=== PATIENT | female | born 1945 | race Caucasian/White ===

== ENCOUNTER 2016-11-24 12:25 | Emergency (ER) | payer BC, OTHER ==
[2016-11-24 13:00] VITALS: BP 170/89; PULSE 86; TEMP 98; BMI 38.9
--- NOTE | 2016-11-24 13:50 | PDOC ---
History of Present Illness - General Stated Complaint: TICK DEV ON NECK Time Seen by Provider: 11/24/16 13:34 History Source: Patient Exam Limitations: No Limitations - History of Present Illness Initial Comments: 11/24/16 13:42 71 yr female pulled a tick off her neck last night. The tick was alive, pt had just been out in the garden. Pt statea ll pieces were removed and she then placed rubbing alcohol on the wound. Pt here for evaluation. Timing/Duration: reports: yesterday Severity: Yes: mild Location: reports: face Respiratory Risk Factors: reports: insect bite Past History - Past Medical History Allergies/Adverse Reactions: Allergies Allergy/AdvReac Type Severity Reaction Status Date / Time No Known Allergies Allergy Verified 11/24/16 13:00 Home Medications: Ambulatory Orders Atenolol [Tenormin -] 50 mg PO DAILY 11/24/16 Lisinopril/Hydrochlorothiazide [Lisinopril-Hctz 20-12.5 mg Tab] 1 each PO DAILY 11/24/16 Metformin HCl 500 mg PO BID 11/24/16 Diabetes: Yes HTN: Yes Other medical history: SALIVARY GLAND, CATARACT - Surgical History Appendectomy: Yes Cholecystectomy: Yes - Psycho/Social/Smoking Cessation Hx Suicidal Ideation: No Smoking History: Never smoked Information on smoking cessation initiated: No Review of Systems - Review of Systems Able to Perform ROS?: Yes Is the patient limited Bulgarian proficient: No Constitutional: No: Symptoms Reported HEENTM: No: Symptoms Reported Respiratory: No: Symptoms reported Cardiac (ROS): No: Symptoms Reported ABD/GI: No: Symptoms Reported : No: Symptoms Reported Musculoskeletal: No: Symptoms Reported Integumentary: Yes: See HPI *Physical Exam - Vital Signs Last Vital Signs Temp Pulse Resp BP Pulse Ox 98 F 86 18 170/89 98 11/24/16 12:56 11/24/16 12:56 11/24/16 12:56 11/24/16 12:56 11/24/16 12:56 - Physical Exam General Appearance: Yes: Nourished, Appropriately Dressed HEENT: positive: EOMI, MOOSE, Normal ENT Inspection, TMs Normal, Pharynx Normal Respiratory/Chest: positive: Lungs Clear, Normal Breath Sounds Cardiovascular: positive: Regular Rhythm, Regular Rate Extremity: positive: Normal Inspection, Normal Range of Motion Integumentary: positive: Normal Color, Dry, Warm, Other (left side neck with 2cm area of redness, no bleeding, site where tick was pulled out) Neurologic: positive: Fully Oriented, Alert, Normal Mood/Affect, Normal Response , Motor Strength 5/5 Medical Decision Making - Medical Decision Making 11/24/16 13:46 cc: pulled a tick off the neck yesterday the tick was still alive, barely imbedded states pt tick went in yesterday pt was in the garden no pain, tender to the area of where tick was removed no drainage or discharge will have pt follow up with PMD, pt asking for referral . *DC/Admit/Observation/Transfer Diagnosis at time of Disposition: Tick bite Qualifiers: Encounter type: initial encounter Qualified Code(s): W57.XXXA - Bitten or stung by nonvenomous insect and other nonvenomous arthropods, initial encounter - Discharge Dispostion Disposition: HOME Condition at time of disposition: Good - Referrals Referrals: Joel Mckeon MD [Staff Physician] - Leah Dong MD [Staff Physician] - - Patient Instructions Additional Instructions: apply a cool compress to the area of pain take tylenol as needed follow up with primary care or Dr. Dong any redness that is spreading or any discharge from the site return to the ER
== END 2016-11-24 13:54 | disposition home or self-care (01) ==
LOC: JERFT 12:25
DX: S10.86XA Insect bite of other specified part of neck, initial encounter (principal); W57.XXXA Bitten or stung by nonvenomous insect and other nonvenomous arthropods, initial encounter; Y93.H2 Activity, gardening and landscaping; Y92.017 Garden or yard in single-family (private) house as the place of occurrence of the external cause; I10 Essential (primary) hypertension; E11.9 Type 2 diabetes mellitus without complications; Z79.84 Long term (current) use of oral hypoglycemic drugs
CPT/HCPCS: 99281-25